=== PATIENT | female | born 1960 | race Caucasian/White ===

== ENCOUNTER → 2018-03-25 | Outpatient (CLI) | payer BC ==
[~2018-03-25] MED LIST: ALBU8.5H12 IH; FLUT250D IH; IBUP800T37 PO; OXYC-865 PO
--- NOTE | 2018-03-25 11:43 | RADIOLOGY IMAGING REPORT ---
FACILITY: [facility] - [place] PATIENT NAME: JIMMY JOAQUIN : [id number] MR: [id number] V: [id number] EXAM DATE: ORDERING PHYSICIAN: RONAN STARK TECHNOLOGIST: Vicki Su PROCEDURE:BILATERAL DIGITAL SCREENING MAMMOGRAM WITH CAD ASSISTED INTERPRETATION & 3D TOMOSYNTHESIS COMPARISON:Prior mammograms 05/01/17, 04/30/17, 04/27/16, 04/26/15, 04/27/14, 05/06/13. INDICATIONS:screening FINDINGS: A small amount of fibroglandular tissue is seen throughout the breasts. The parenchymal pattern has remained stable allowing for difference in mammographic technique & patient positioning. There is no evidence of malignant appearing mass, malignant appearing calcifications or other secondary sign of malignancy in either breast. DIAGNOSTIC CATEGORY 1--NEGATIVE. RECOMMENDATIONS: ROUTINE MAMMOGRAM AND CLINICAL EVALUATION. IMPRESSION: BIRADS 1: Negative. No significant abnormality is seen. Dictated by: Marni Mccord M.D. on 03/25/2018 at 8:48 Transcribed by: OSCAR on 03/25/2018 at 9:04 Approved by: Marni Mccord M.D. on 03/25/2018 at 11:42 [facility]
== END ==
LOC: MAMO 01:18
PROVIDERS: ATTEND Nurse Practitioner Family
DX: Z12.31 Encounter for screening mammogram for malignant neoplasm of breast (principal)
CPT/HCPCS: 77063; 77067

== ENCOUNTER → 2019-03-30 | Outpatient (CLI) | payer BC, OTHER ==
--- NOTE | 2019-04-01 08:14 | RADIOLOGY IMAGING REPORT ---
FACILITY: [facility] - [place] PATIENT NAME: JIMMY JOAQUIN : [id number] MR: [id number] V: [id number] EXAM DATE: ORDERING PHYSICIAN: RONAN STARK TECHNOLOGIST: Vicki Su PROCEDURE: BILATERAL DIGITAL SCREENING MAMMOGRAM WITH CAD ASSISTED INTERPRETATION & 3D TOMOSYNTHESIS. REASON FOR STUDY: Screening. FAMILY HISTORY OF BREAST CANCER: Possible paternal grandmother, maternal aunt, & great maternal aunt. BREAST PROCEDURES/TREATMENTS: None. COMPARISON: 03/25/18, 04/27/16, 04/26/15, 04/27/14, 05/07/11, 05/04/10, , . VIEWS OBTAINED: Bilateral 2D & 3D full field CC & MLO projections. BREAST DENSITY: There are scattered areas of fibroglandular density throughout the breasts. MAMMOGRAM FINDINGS: The parenchymal pattern has remained stable allowing for difference in mammographic technique & patient positioning. IMPRESSION: BIRADS 1: Negative. DIAGNOSTIC CATEGORY 1--NEGATIVE. RECOMMENDATIONS: ROUTINE MAMMOGRAM AND CLINICAL EVALUATION. Dictated by: Marni Mccord M.D. on 03/31/2019 at 10:00 Transcribed by: OSCAR on 03/31/2019 at 15:40 Approved by: Marni Mccord M.D. on 04/01/2019 at 8:10 [facility]
== END ==
LOC: MAMO 00:23
PROVIDERS: ATTEND Nurse Practitioner Family
DX: Z12.31 Encounter for screening mammogram for malignant neoplasm of breast (principal); Z80.3 Family history of malignant neoplasm of breast
CPT/HCPCS: 77063; 77067